=== PATIENT | female | born 1955 | race Caucasian/White ===

== ENCOUNTER → 2018-12-18 | Outpatient (CLI) | payer MEDICARE, OTHER | END | disposition home or self-care (01) | LOC: RAD 12:30 | PROVIDERS: ATTEND Internal Medicine | DX: R05 Cough (principal); R91.8 Other nonspecific abnormal finding of lung field | CPT/HCPCS: 71250 ==

== ENCOUNTER 2019-01-02 14:55 | Emergency (ER) | payer MEDICARE, OTHER ==
[~2019-01-02] VITALS: Ht 160 cm; Wt 91.0 kg
[2019-01-02] MEDS ORDERED: SODIUM CHLORIDE FLUSH 10ML SYR IVF ONE (15:30)
--- NOTE | 2019-01-02 15:33 | NUR ---
ON ARRIVAL TO 15 LABS DRAWN AND AFTER ASSESSMENT PT TO XRAY, AMBULATING WITHOUT ASSISTANCE
[2019-01-02 15:37] LABS: BASOPHILS % (AUTO) 1 % (0-1); EOSINOPHILS # (AUTO) 0.46 x10^3/uL (0-0.4); EOSINOPHILS % (AUTO) 4 % (1-7); LYMPHOCYTES # (AUTO) 2.18 x10^3/uL (1-3.4); LYMPHOCYTES % (AUTO) 21 % (22-44); MD NO; MEAN CORPUSCULAR HGB CONC 33.6 g/dL (32.4-35.8); MEAN CORPUSCULAR VOLUME 92.3 fL (80-100); MEAN PLATELET VOLUME 7.5 fL (7.4-10.4); MONOCYTES # (AUTO) 0.63 x10^3/uL (0.2-0.8); MONOCYTES % (AUTO) 6 % (2-9); NEUTROPHILS # (AUTO) 7.09 x10^3/uL (1.8-6.8); NEUTROPHILS % (AUTO) 68 % (42-75); PLATELET COUNT 274 x10^3/uL (130-400); RED BLOOD COUNT 4.81 x10^6/uL (3.82-5.3); RED CELL DISTRIBUTION WIDTH 13.3 % (9.6-15.2)
[2019-01-02 15:49] LABS: ALBUMIN 3.8 g/dL (3.4-5.0); ANION GAP 5 mmol/L (5-15); CALCIUM 8.6 mg/dL (8.5-10.1); CHLORIDE 110 mmol/L (98-107)
[2019-01-02 15:53] LABS: ALANINE AMINOTRANSFERASE 30 U/L (12-78); ALKALINE PHOSPHATASE 69 U/L (45-117); BILIRUBIN,TOTAL 0.7 mg/dL (0.2-1.0); CREATININE 1.29 mg/dL (0.55-1.02)
[2019-01-02] MEDS ORDERED: ALBUTEROL/IPRATROPIUM 2.5MG/0.5MG, 3 ML NEB ONE (15:55)
[2019-01-02] MEDS ORDERED: ALBUTEROL SULFATE 2.5 MG/3 ML NPPB ONE (15:55)
[2019-01-02] MEDS ORDERED: ALBUTEROL SULFATE 2.5MG/0.5ML ONE (16:02)
[2019-01-02] MEDS ORDERED: ALBUTEROL/IPRATROPIUM 2.5MG/0.5MG, 3 ML ONE (16:02)
--- NOTE | 2019-01-02 16:19 | NUR ---
RT AT BEDSIDE
--- NOTE | 2019-01-02 16:56 | NUR ---
RE-EVAL WITH ADDITIONAL BREATHING TX TO BE GIVEN. PT HAS INSPIRATORY AND EXPIRATORY WHEEZES BUT IMPROVED SINCE FIRST TX. PT TALKING ON PHONE, NO DISTRESS
[2019-01-02] MEDS ORDERED: ALBUTEROL SULFATE 2.5 MG/3 ML NPPB PRN (17:00)
[2019-01-02] MEDS ORDERED: ALBUTEROL SULFATE 2.5 MG/3 ML ONE (17:43)
--- NOTE | 2019-01-02 18:00 | NUR ---
ATTEMPT TO DC PT, HAS RX FOR NEBULIZER MACHINE, CALLS TO [facility], [facility] AND [facility]. NO NEBULIZERS AVAILABLE. WORKING WITH [employer] RN FOR NEBULIZER. PT DRESSED, STATES FEELS BETTER.
--- NOTE | 2019-01-02 18:46 | NUR ---
AWAITING NEBULIZIER FROM [facility] TO BE DELIVERED TO THE ED. PT SITTING ON A CHAIR, TALKING ON PHONE, IN COMPLETE SENTENCES.
--- NOTE | 2019-01-02 19:13 | NUR ---
PT INSTRUCTED ON USE OF NEBULIZIER BY [employer] REP. REVIEWED DC INSTRUCTIONS WITH PT, UNDERSTANDING VERBALIZED. NO IV TO DC. PT LEFT AMB, GAIT STEADY.
[2019-01-02 19:14] VITALS: BP 149/83
== END 2019-01-02 19:15 | disposition home or self-care (01) ==
LOC: ED 18:16
DX: J20.8 Acute bronchitis due to other specified organisms (principal); Z87.891 Personal history of nicotine dependence
CPT/HCPCS: 36415; 71046; 80053; 85025; 93005; 94640; 99284; J7512; J7613; J7620

== ENCOUNTER → 2019-01-07 | Outpatient (CLI) | payer MEDICARE, OTHER | END | disposition home or self-care (01) | LOC: CARD 15:10 | PROVIDERS: ATTEND Family Medicine | DX: R06.2 Wheezing (principal) | CPT/HCPCS: 94010; 94060 ==

== ENCOUNTER → 2019-05-06 | Outpatient (CLI) | payer MEDICARE, OTHER | END | disposition home or self-care (01) | LOC: RAD 09:21 | PROVIDERS: ATTEND Nurse Practitioner | DX: R10.2 Pelvic and perineal pain (principal) | CPT/HCPCS: 72190 ==